=== PATIENT | female | born 1960 | race Native Hawaiian/Other Pacific Islander ===

== ENCOUNTER → 2016-05-09 | Day surgery (SDC) | payer OTHER ==
[~2016-05-09] MED LIST: LIPITOR40 MG PO; METFORMIN HCL500 M1 PO; PRILOSEC PO
--- NOTE | ~2016-05-09 | OR ---
Unit #: [id number] #: [id number] Patient: LEONARDA AC [id number] [address] [place], [place] [address] [id number] MR#: [id number] NAME: LEONARDA AC ROOM: Date of Procedure: 05/09/2016 Admission Date: 05/09/2016 Surgeon: Jamari Mercedes Jr., M.D. : 1960 Attending Physician: Jamari Mercedes Jr., M.D. Referring Physician: Jamari Mercedes Jr., M.D. Primary Care Physician: Ricardo Ibarra M.D. OPERATIVE REPORT INDICATIONS FOR PROCEDURE The patient is a 55-year-old female from [place], who recently presented to the office complaining of a draining painful cyst of the upper back. This has been there for sometime, had gotten larger and started to spontaneously drain some sebaceum. She is brought in this time for excision of this under local anesthesia. She understands the procedure including the risks, including that of recurrence, infection, and poor healing, and chronic pain, and consents. PREOPERATIVE DIAGNOSES Chronic infected cyst of the upper back. POSTOPERATIVE DIAGNOSIS Chronic infected cyst of the upper back, noting approximately 2 to 2. 5 cm cyst with related infection and sebaceum. ANESTHESIA 1% Xylocaine with epinephrine locally. PROCEDURE PERFORMED Excision of chronic infected cyst of the upper back. DESCRIPTION OF PROCEDURE The patient was positioned in left lateral decubitus position. After being prepped and draped in routine fashion, she was anesthetized locally in the area of the cyst with 1% Xylocaine with epinephrine. An elliptical incision was made around the cyst being totally excised from the surrounding tissue with a #15 blade scalpel. An incision was carried down to the deeper subcutaneous tissue. The lesion was completely removed along with the elliptical portion of skin and sent to pathology. Hemostasis achieved with Bovie cautery. The deeper tissue was then irrigated and after again hemostasis was achieved, it was approximated with interrupted 3-0 Vicryl sutures. Skin edges approximated with stainless-steel skin clips and skin stapling device. Sterile dressings were applied externally. Estimated blood loss less than 25 mL. The patient received no fluids during the procedure. Sponges and instruments counts were correct x3. No drains used. No complications. The patient was discharged in satisfactory condition. Dictated by... Jamari Mercedes Jr., M.D. Unit #: [id number] #: [id number] Patient: LEONARDA AC/osiel TD: 05/10/2016 07:48 JOB #: [id number] CC: Ricardo Ibarra M.D. OPERATIVE REPORT Page 1 of 1 X Jamari Mercedes MD X PROCEDURE OPERATIVE NOTE
== END | disposition home or self-care (01) ==
LOC: CSUR 08:59
DX: L72.0 Epidermal cyst (principal); L08.9 Local infection of the skin and subcutaneous tissue, unspecified; K21.9 Gastro-esophageal reflux disease without esophagitis; F17.210 Nicotine dependence, cigarettes, uncomplicated; I10 Essential (primary) hypertension; E11.9 Type 2 diabetes mellitus without complications; H40.9 Unspecified glaucoma; E78.5 Hyperlipidemia, unspecified; M19.90 Unspecified osteoarthritis, unspecified site; E66.3 Overweight; D69.6 Thrombocytopenia, unspecified; Z79.899 Other long term (current) drug therapy; Z82.61 Family history of arthritis; Z82.49 Family history of ischemic heart disease and other diseases of the circulatory system; Z83.3 Family history of diabetes mellitus
CPT/HCPCS: 82947; 88304